=== PATIENT | female | born 1995 | race African-American/Black ===

== ENCOUNTER 2019-12-13 09:25 | Inpatient (IN) | payer OTHER ==
[2019-12-13] MEDS ORDERED: ELECTROLYTE-148 SOLN 500 ML IV ONE (13:39)
[2019-12-13] MEDS ORDERED: CITRIC ACID/SODIUM CITRATE 30 ML UNIT-DOSE CUP PO ONE (13:39)
--- NOTE | 2019-12-13 13:44 | HP ---
Past Medical History - Primary Care Physician PCP:: Derrick Peacock - Admission Chief Complaint: repeat lt c s History Source: Patient Limitations to Obtaining History: No Limitations - Past Medical History VP SECURITY: No: Alzheimer's, CVA, Dementia, Migraine, Multiple Sclerosis, Peripheral Neuropathy, Parkinson's, Seizure, Syncope, TIA, Vertigo, Other Cardiovascular: No: AFIB, Aneurysm, Aortic Insufficiency, Aortic Stenosis, CAD, CHF, Deep Vein Thrombosis, HTN, Hyperlipdemia, AR, Mitral Insufficiency, Mitral Stenosis, Murmur, Pulmonary Hypertension, Other Pulmonary: No: Asthma, Bronchitis, Cancer, COPD, O2 Dependent, Pneumonia, Previously Intubated, Pulmonary Embolus, Pulmonary Fibrosis, Sleep Apnea, Other Gastrointestinal: No: Ascites, Cancer, Constipation, Crohn's Disease, Diverticulitis, Diverticulosis, Esophageal Varices, Gastritis, GERD, GI Bleed, Hemorrhoids, Hiatal Hernia, Inflamatory Bowel Disease, Irritable Bowel Disease, Pancreatitis, Peptic Ulcer Disease, Ulcerative Colitis, Other Hepatobiliary: No: Cirrhosis, Cholelithiasis, Cholecystitis, Choledocholithiasis, Hepatitis A, Hepatitis B, Hepatitis C, Other Renal/: No: Renal Failure, Renal Inusuff, BPH, Cancer, Hematuria, Hemodialysis, Neurogenic Bladder, Renal Calculi, UTI, Other Reproductive: No: Ectopic , Endometriosis, Fibroids, PID, Polycystic Ovary Syndrome, Postmenopausal, Other Heme/Onc: No: Anemia, B12 Deficiency, Bleeding Disorder, Cancer, Current Chemotherapy, Current Radiation Therapy, Hemochromatosis, Hypercoaguable State, Myeloproliferative Synd, Sickle Cell Disease, Sickle Cell Trait, Thrombocytopenia, Other Infectious Disease: No: AIDS, C-Diff, Herpes Zoster, HIV, MRSA, STD's, Tuberculosis, VREF, Other Psych: No: Addictions, Anxiety, Bipolar, Depression, Panic, Psychosis, Schizophrenia, Other Musculoskeletal: No: Bursitis, Chronic low back pain, Hemiparesis, Hemiplegia, Osteoarthritis, Paraplegia, Other Rheumatology: No: Fibromyalgia, Gout, Lupus, Rheumatoid Arthritis, Sarcoidosis, Vasculitis, Other ENT: No: Allergic Rhinitis, Sinusitis, Other Endocrine: No: Alcona's Disease, Juana's Disease, Diabetes Insipidus, Diabetes Mellitus, Hyperparathyroidism, Hyperthyroidism, Hypothyroidism, Osteopenia, SIADH, Other Dermatology: No: Basal Cell, Cellulitis, Eczema, Melanoma, Psoriasis, Squamous Cell, Other - Past Surgical History Past Surgical History: Yes: Hx Myomectomy: No Hx Transabdominal Cerclage: No - Advance Directives Advance Directives: Yes: Living Will - Smoking History Smoking history: Never smoked Have you smoked in the past 12 months: No - Alcohol/Substance Use Hx Alcohol Use: No History of Substance Use: reports: None - Social History Usual Living Arrangement: Yes: With Significant Other Do you think of yourself as: Straight/Heterosexual ADL: Independent History of Recent Travel: No Family Medical History Family History: Denies Review of Systems - Review of Systems Constitutional: reports: No Symptoms Eyes: reports: No Symptoms HENT: reports: No Symptoms Neck: reports: No Symptoms Cardiovascular: reports: No Symptoms Respiratory: reports: No Symptoms Gastrointestinal: reports: No Symptoms Genitourinary: reports: No Symptoms Breasts: reports: No Symptoms Reported Musculoskeletal: reports: No Symptoms Integumentary: reports: No Symptoms Neurological: reports: No Symptoms Endocrine: reports: No Symptoms Hematology/Lymphatic: reports: No Symptoms Psychiatric: reports: No Symptoms Physical Exam - Maternity Vital Signs: Vital Signs Temperature 98.0 F 12/13/19 13:15 Pulse Rate 82 12/13/19 13:15 Respiratory Rate 18 12/13/19 13:15 Blood Pressure 98/67 12/13/19 13:15 O2 Sat by Pulse Oximetry (%) Constitutional: Yes: Well Nourished, No Distress, Calm Eyes: Yes: WNL, Conjunctiva Clear, EOM Intact HENT: Yes: WNL, Atraumatic, Normocephalic Neck: Yes: WNL, Supple, Trachea Midline Cardiovascular: Yes: WNL, Regular Rate and Rhythm Lungs: Clear to auscultation Breast(s): Yes: WNL - Abdominal Exam/OB Fundal Height: 38 Number of Fetuses: Single Presentation: Vertex Contractions: Yes Regularity: Irregular Intensity: Mild Monitor Mode: External Heart Rate Location: [facility] Category: I Accelerations: Uniform Decelerations: None - Vaginal Exam/OB Vaginal Bleeding: No Speculum Exam: No Dilatation (cm): 1 Effacement (%): 30 Amniotic Membrane Status: Intact Presentation: Vertex/Position Station: -2 - Physical Exam Musculoskeletal: Yes: WNL Extremities: Yes: WNL Edema: Yes Integumentary: Yes: WNL Deep Tendon Reflex Grade: Normal +2 ...Motor Strength: WNL Psychiatric: Yes: WNL, Alert, Oriented Hemorrhage Risk Assessment - Risk Factors Medium Risk Factors: Yes: Prior , uterine surgery,or multiple laparotomies High Risk Factors: Yes: None Risk Score: 1 Risk Level: Medium Risk Assessment/Plan for repeat lt c s x3
[2019-12-13] MEDS ORDERED: ELECTROLYTE-148 SOLN 1,000 ML IV SCH (13:45)
[2019-12-13 13:52] VITALS: BMI 29.2
[2019-12-13] MEDS ORDERED: morphine SULFATE/PF 0.5 MG/ML (2cc Syringe - QUVA) ONE (14:53)
[2019-12-13] MEDS ORDERED: ceFAZolin SODIUM 1 GM VIAL ONE ×2 (15:23→15:24)
[2019-12-13] MEDS ORDERED: KETOROLAC TROMETHAMINE 30 MG/1 ML VIAL ONE (15:24)
[2019-12-13] MEDS ORDERED: OXYTOCIN 20 UNITS in 0.9% NS 20 UNIT/1,000 ML INFUS.BAG IV ONE ×2 (15:25→16:07)
[2019-12-13] MEDS ORDERED: ePHEDrine SULFATE 50 MG/1 ML AMPULE ONE (15:31)
--- NOTE | 2019-12-13 16:44 | OP ---
Operative Note - Note: Operative Date: 12/13/19 Pre-Operative Diagnosis: repeat lt c s x 3 Operation: repeat lt c s x3 Post-Operative Diagnosis: Same as Pre-op Surgeon: Derrick Peacock Manager Medical Affairs: Dieudonne Spann Anesthesia: Spinal Estimated Blood Loss (mls): 500 (no complications ) Operative Report Dictated: Yes
[2019-12-13] MEDS ORDERED: METHYLERGONOVINE MALEATE 0.2 MG/1 ML AMP IM PRN (16:46)
[2019-12-13] MEDS ORDERED: SENNOSIDES/DOCUSATE COMBO (SENNA PLUS) TABLET (UD) PO PRN (16:46)
[2019-12-13] MEDS ORDERED: IBUPROFEN 800 MG/8 ML IJ IVPB PRN (16:46)
[2019-12-13] MEDS ORDERED: oxyCODONE HCL 5 MG TABLET PO PRN ×2 (16:46)
[2019-12-13] MEDS ORDERED: OXYTOCIN 20 UNITS in 0.9% NS 20 UNIT/1,000 ML INFUS.BAG IV SCH (17:00)
--- NOTE | 2019-12-13 19:31 | OP ---
DATE OF OPERATION: 12/13/2019 PREOPERATIVE DIAGNOSIS: Repeat low transverse section x3. POSTOPERATIVE DIAGNOSIS: Repeat low transverse section x3. PROCEDURE: Repeat low transverse section. SURGEON: Derrick Maurice MD. HEAD TRIMMER: DIANA Reddy. ANESTHESIA: Spinal ANESTHESIOLOGIST: Nany Trimble MD; BLOOD LOSS: About 500 mL INDICATION: A 24-year-old female patient, previous low transverse section x2, this is number 3, once 39 weeks was taken to the OR for repeat low transverse section. DESCRIPTION OF PROCEDURE: Patient was taken to OR, placed on operating table in supine position after spinal anesthesia was obtained. The patient's abdomen and pelvis were prepped and draped in the usual sterile manner. Pfannenstiel incision was made. The incision was made through skin, subcutaneous tissue, until the fascia was nicked in the midline. The fascia was extended bilaterally. Intraperitoneal cavity was entered, bladder flap was not created. Low transverse section of uterus was entered, baby delivered from LOT position. Baby was handed over to the long term care phlebotomist after umbilical cord was doubly clamped and cut. No cord blood gas was obtained. Placenta was removed. Uterus was closed in single layer, first layer interlocking Vicryl suture, good hemostasis, and both gutters clean. Both ovaries, fallopian tubes, uterus were within normal limits, and a polycystic ovarian cysts of the ovary were seen, and other than that, both gutters were clean, draining clear urine. Blood loss about 500 mL. Peritoneum was closed. Fascia was closed. Skin was closed. Transferred to recovery room in stable condition. DERRICK MAURICE MD [id number]
[2019-12-13] MEDS ORDERED: ONDANSETRON 4 MG/2 ML VIAL IVPB PRN (21:47)
[2019-12-14] MEDS: PRENATAL VITAMINS W/ FOLIC ACID TABLET (FP) PO SCH (09:28)
[2019-12-14 10:05] LABS: BASO % 0.4 % (0-2.0); EOS % 0.5 % (0-4.5); HEMATOCRIT 37.8 % (32.4-45.2); HEMOGLOBIN 12.3 GM/dL (10.7-15.3); LYMPH % 10.7 % (8-40); MCH 29.1 pg (25.7-33.7); MCHC 32.4 g/dl (32.0-36.0); MEAN CELL VOLUME 89.6 fl (80-96); MEAN PLT VOLUME 10.2 fl (7.5-11.1); MONO % 7.3 % (3.8-10.2); NEUT % 81.1 % (42.8-82.8); PLATELET COUNT 167 K/MM3 (134-434); RBC 4.21 M/mm3 (3.60-5.2); RDW 15.1 % (11.6-15.6)
--- NOTE | 2019-12-14 12:07 | PN ---
Post Progress Note - Subjective Subjective: Patient seen and evaluated, doing well. Post Day: 1 Type of Delivery: Repeat C/S Vital Signs: Vital Signs Temperature 98.2 F 12/14/19 05:59 Pulse Rate 86 12/14/19 05:59 Respiratory Rate 20 12/14/19 06:00 Blood Pressure 95/61 12/14/19 05:59 O2 Sat by Pulse Oximetry (%) 100 12/13/19 17:10 Breast Exam: Yes: Soft Uterus: Yes: Fundus Firm Incision: Yes: Dressing dry and intact Abdomen/GI: Yes: Abdomen soft, Tolerating PO Lochia: Yes: Rubra Lochia, amount: Small Extremities: Yes: Calves non-tender (Lying in bed) - Labs Labs: CBC WBC 9.0 K/mm3 (4.0-10.0) 12/14/19 09:17 RBC 4.21 M/mm3 (3.60-5.2) 12/14/19 09:17 Hgb 12.3 GM/dL (10.7-15.3) 12/14/19 09:17 Hct 37.8 % (32.4-45.2) 12/14/19 09:17 MCV 89.6 fl (80-96) 12/14/19 09:17 MCH 29.1 pg (25.7-33.7) 12/14/19 09:17 MCHC 32.4 g/dl (32.0-36.0) 12/14/19 09:17 RDW 15.1 % (11.6-15.6) 12/14/19 09:17 Plt Count 167 K/MM3 (134-434) 12/14/19 09:17 MPV 10.2 fl (7.5-11.1) 12/14/19 09:17 Absolute Neuts (auto) 7.3 K/mm3 (1.5-8.0) 12/14/19 09:17 Neutrophils % 81.1 % (42.8-82.8) D 12/14/19 09:17 Lymphocytes % 10.7 % (8-40) D 12/14/19 09:17 Monocytes % 7.3 % (3.8-10.2) 12/14/19 09:17 Eosinophils % 0.5 % (0-4.5) 12/14/19 09:17 Basophils % 0.4 % (0-2.0) 12/14/19 09:17 Nucleated RBC % 0 % (0-0) 12/14/19 09:17 Problem List - Problems (1) Status post repeat low transverse section Code(s): Z98.891 - HISTORY OF UTERINE SCAR FROM PREVIOUS SURGERY Assessment/Plan Status post repeat Low Transverse Ambulation Analgesia as needed Continue routine care
[2019-12-14] MEDS: IBUPROFEN 600 MG TABLET (FP) PO PRN ×2 (14:41→23:40)
[2019-12-14] MEDS: SIMETHICONE 80 MG TAB.CHEW (FP) PO PRN ×2 (14:41→23:39)
[2019-12-14] MEDS: ACETAMINOPHEN 325 MG TABLET (FP) PO PRN ×2 (14:42→23:40)
--- NOTE | 2019-12-14 15:37 | PN ---
Post Progress Note Post Day: 1 Type of Delivery: Repeat C/S Vital Signs: Vital Signs Temperature 98.5 F 12/14/19 14:00 Pulse Rate 97 H 12/14/19 14:00 Respiratory Rate 20 12/14/19 15:00 Blood Pressure 105/65 12/14/19 14:00 O2 Sat by Pulse Oximetry (%) 98 12/14/19 14:00 Breast Exam: Yes: Soft Uterus: Yes: Fundus Firm Incision: Yes: Dressing dry and intact, Sutures intact Abdomen/GI: Yes: Abdomen soft, Passing flatus, Tolerating PO Lochia: Yes: Serosa Lochia, amount: Small Extremities: Yes: Calves non-tender Perineum: Yes: Intact Activity: Ambulating - Labs Labs: CBC WBC 9.0 K/mm3 (4.0-10.0) 12/14/19 09:17 RBC 4.21 M/mm3 (3.60-5.2) 12/14/19 09:17 Hgb 12.3 GM/dL (10.7-15.3) 12/14/19 09:17 Hct 37.8 % (32.4-45.2) 12/14/19 09:17 MCV 89.6 fl (80-96) 12/14/19 09:17 MCH 29.1 pg (25.7-33.7) 12/14/19 09:17 MCHC 32.4 g/dl (32.0-36.0) 12/14/19 09:17 RDW 15.1 % (11.6-15.6) 12/14/19 09:17 Plt Count 167 K/MM3 (134-434) 12/14/19 09:17 MPV 10.2 fl (7.5-11.1) 12/14/19 09:17 Absolute Neuts (auto) 7.3 K/mm3 (1.5-8.0) 12/14/19 09:17 Neutrophils % 81.1 % (42.8-82.8) D 12/14/19 09:17 Lymphocytes % 10.7 % (8-40) D 12/14/19 09:17 Monocytes % 7.3 % (3.8-10.2) 12/14/19 09:17 Eosinophils % 0.5 % (0-4.5) 12/14/19 09:17 Basophils % 0.4 % (0-2.0) 12/14/19 09:17 Nucleated RBC % 0 % (0-0) 12/14/19 09:17 Assessment/Plan dc pt home tomorrow
--- NOTE | 2019-12-14 15:39 | DS ---
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 Vital Signs: Vital Signs Temperature 98.5 F 12/14/19 14:00 Pulse Rate 97 H 12/14/19 14:00 Respiratory Rate 12/14/19 15:00 Blood Pressure 105/65 12/14/19 14:00 O2 Sat by Pulse Oximetry (%) 98 12/14/19 14:00 Constitutional: Yes: Well Nourished, No Distress, Calm Eyes: Yes: WNL, Conjunctiva Clear, EOM Intact HENT: Yes: WNL, Atraumatic, Normocephalic Neck: Yes: WNL, Supple, Trachea Midline Cardiovascular: Yes: WNL, Regular Rate and Rhythm Respiratory: Yes: WNL, Regular, CTA Bilaterally Gastrointestinal: Yes: WNL, Normal Bowel Sounds, Soft ...Rectal Exam: Yes: WNL Renal/: Yes: WNL Pelvis: Yes: WNL External Genitalia: Yes: Normal Internal Exam Deferred: Yes Vaginal Exam: Yes: Normal Cervix: Yes: Normal Uterus: Yes: Normal Adnexa: Normal: Bilateral ....Post : Yes: Uterus firm, Uterus non-tender Breast(s): Yes: WNL Musculoskeletal: Yes: WNL Extremities: Yes: WNL Edema: Yes Integumentary: Yes: WNL Wound/Incision: Yes: Clean/Dry, Well Approximated Neurological: Yes: WNL, Alert, Oriented ...Motor Strength: WNL Psychiatric: Yes: WNL, Alert, Oriented Labs: CBC, BMP 12/14/19 09:17 Delivery - Delivery Section: Repeat Type of Anesthesia: Spinal Episiotomy/Laceration: None EBL (cc): 500 Delivery, Single - Stages of Labor Date of Delivery: 12/13/19 Time of Delivery: 15:38 Time Placenta Delivered: 15:39 - Condition of Infant Panel Sewer/Attendant Coin Operated Laundry Present: Yes Name: Lupe Lynn Infant Gender: Male Weight: 3.374 kg Position: Left, OA Total Hours ROM (Hrs/Mins): 3mins - 1 Minute Total Score: 9 5 Minutes Total Score: 9 - [place] Feeding Plan Initial Plan: Elected not to breastfeed exclusively throughout hospitalization Discharge Summary Problems reviewed: Yes Reason For Visit: CSECTION Current Active Problems Status post repeat low transverse section (Acute) Procedures: Principal: repeat c s x 3 Hospital Course: uneventful Health Concerns: none Condition: Good - Instructions Diet, Activity, Other Instructions: Physical activity Resume your normal everyday activity as tolerated no heavy lifting or exercise until seen by your surgeon. You may walk unlimited kota of and climb stairs. You may resume driving the car when you feel safe and comfortable behind the wheel. No sexual activity as instructed. Wound care If you have a bandage, leave it on, and keep dry for 48-72 hours. After that time discard the outer bandage. If they are tapes on the skin under the out of bandage leave them in place. They will peel off in the next 7 to 10 days. Do Not Peel them off. You may shower the day after surgery. If there are tapes present on the skin, you may shower over them. Diet There are no dietary restrictions. Eat healthy, high-fiber foods. Drink 6 to 8 glasses of liquid each day. This will assist in keeping your bowels are regular. Pain management You may take Tylenol or acetaminophen or Ibuprofen (for example, Motrin, Advil etc.) from my pain prescription medication is ordered should be taken as prescribed for moderate to severe pain. Call MD for any of the following: call dr johnson for 2 weeks appointment Severe pain not relieved by medication Fever of 101 or higher Excessive bleeding or drainage on dressing Inability to urinate Disposition: HOME - Home Medications Comprehensive Discharge Medication List: Ambulatory Orders Pnv No.95/Ferrous Fum/Folic AC [ Formula] 1 each PO DAILY 12/13/19 Prescription Drug Monitoring Program (I-STOP) results: I-STOP reviewed and no issues identified
[2019-12-14] MEDS ORDERED: BISACODYL 10 MG SUPP.RECT RC PRN (16:46)
--- NOTE | 2019-12-14 18:52 | PN ---
Progress Note (short form) - Note Progress Note: 24F s/p repeat C/S under spinal with Duramorph. No new c/o. Vital Signs Temp 98.5 F 12/14/19 14:00 Pulse 97 H 12/14/19 14:00 Resp 20 12/14/19 15:00 BP 105/65 12/14/19 14:00 Pulse Ox 98 12/14/19 14:00 Intake & Output 12/13/19 12/14/19 12/14/19 23:59 11:59 23:59 Intake Total 1300 800 Output Total 100 2500 900 Balance 1200 -1700 -900 Weight 160 lb Intake: IV 1300 800 NORMAL SALINE+20 UNITS 500 800 OXYTOCIN - 20 unit In 1, 000 ml @ 125 mls/hr IV ASDIR ELIZABETH Rx#:[id number] Plasma-Lyte 148 - 500 ml 800 @ 1000 mls/hr IV ASDIR ONE Rx#:[id number] Output: Urine 100 2500 900 Baum 100 2500 Void 900 Other: Voiding Method Indwelling Catheter Toilet Bowel Movement No Height 5 ft 2 in Body Mass Index (BMI) 29.2 Weight 7 lb 7 oz 7 lb 7 oz Length 18 in Weight Measurement Method Stated by Patient - No anesthesia complications - D/C pending
[2019-12-15] MEDS: PRENATAL VITAMINS W/ FOLIC ACID TABLET (FP) PO SCH (09:43)
[2019-12-15] MEDS: SIMETHICONE 80 MG TAB.CHEW (FP) PO PRN (13:03)
[2019-12-15] MEDS: IBUPROFEN 600 MG TABLET (FP) PO PRN (13:03)
[2019-12-15] MEDS: ACETAMINOPHEN 325 MG TABLET (FP) PO PRN (13:03)
[2019-12-15 14:35] VITALS: BP 118/73; PULSE 83; TEMP 98.3
--- NOTE | 2019-12-23 11:58 | PATH ---
Surgical Pathology Report Patient Name: MARKO SAUCEDA Med. Rec. 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 TRIVASCULAR CORD. MEMBRANES WITH NO DIAGNOSTIC ABNORMALITIES. Electronically Signed Irene Carranza M.D. Gross Description The specimen is received fresh labeled placenta and is a 496 gram, 19.0 x 17.0 x 2.6 cm. placenta with attached membranes and umbilical cord. The attached membranes are hall, translucent with focal opacities and insert marginally. The umbilical cord measures 37 cm. in length and averages 1 cm. in diameter. The cord inserts eccentrically, 2 cm. to the nearest margin. No true knots or strictures are identified. Cut surface of the umbilical cord reveals 3 vessels. The surface is garcia-blue with minimal fibrin deposition and appropriate caliber vessels. The maternal surface is red-brown with focal defects. Sectioning reveals red-brown, spongy parenchyma. No lesions are identified. Machine Operator Packaging sections are submitted in three cassettes as follows: 1- membrane rolls and umbilical cord; 2-3- full thickness sections of placenta. /12/19/2019 [facility]12/19/2019
== END 2019-12-15 13:50 | disposition home or self-care (01) | DRG 540 ==
LOC: JLDR 09:25 → J3W 18:00
PROVIDERS: ADMIT Obstetrics & Gynecology; ATTEND Obstetrics & Gynecology
PROC: 10D00Z1 Extraction of Products of Conception, Low, Open Approach (ICD-10-PCS; principal; 2019-12-13)
DX: O82 Encounter for cesarean delivery without indication (principal); O34.211 Maternal care for low transverse scar from previous cesarean delivery; Z3A.39 39 weeks gestation of pregnancy; Z37.0 Single live birth
CPT/HCPCS: 36415; 85025; 88307-TC

== ENCOUNTER 2024-03-29 11:11 | Inpatient (IN) | payer OTHER ==
[2024-03-29] MEDS: ELECTROLYTE-148 SOLN 500 ML IV ONE (11:50)
[2024-03-29 12:26] VITALS: BMI 31.4
[2024-03-29] MEDS: ELECTROLYTE-148 SOLN 1,000 ML IV SCH (12:50)
[2024-03-29] MEDS: CITRIC ACID/SODIUM CITRATE 30 ML UNIT-DOSE CUP PO ONE (13:05)
[2024-03-29] MEDS ORDERED: IBUPROFEN 600 MG TABLET (FP) PO PRN (13:17)
[2024-03-29] MEDS ORDERED: ACETAMINOPHEN 325 MG TABLET (FP) PO PRN ×2 (13:17→15:35)
[2024-03-29] MEDS ORDERED: ceFAZolin SODIUM 1 GM VIAL ONE (13:21)
[2024-03-29] MEDS ORDERED: morphine SULFATE/PF 1 MG/2 ML (2cc Syringe - QUVA) ONE (13:21)
[2024-03-29] MEDS ORDERED: FENTANYL CITRATE/PF 50 MCG/ML VIAL ONE (13:21)
[2024-03-29] MEDS ORDERED: PHENYLEPHRINE HCL 10 MG/1 ML SINGLE DOSE VIAL ONE (14:00)
[2024-03-29] MEDS ORDERED: OXYTOCIN 10 UNITS/ML VIAL ONE ×2 (14:08→14:40)
[2024-03-29] MEDS ORDERED: ONDANSETRON 4 MG/2 ML VIAL ONE (17:04)
[2024-03-29] MEDS: ONDANSETRON 4 MG/2 ML VIAL IVPUSH PRN (17:15)
[2024-03-29] MEDS ORDERED: NIFEdipine E.R. 30 MG TABLET PO ONE (17:32)
[2024-03-29] MEDS: NIFEdipine E.R. 30 MG TABLET PO SCH (17:33)
[2024-03-29] MEDS ORDERED: OXYTOCIN 20 UNITS in 0.9% NS 20 UNIT/1,000 ML INFUS.BAG IV ONE (17:56)
[2024-03-29] MEDS: OXYTOCIN 20 UNITS in 0.9% NS 20 UNIT/1,000 ML INFUS.BAG IV SCH (17:59)
[2024-03-29] MEDS ORDERED: ACETAMINOPHEN INJECTION 100 ML ONE (18:48)
[2024-03-29] MEDS ORDERED: MISOPROSTOL 200 MCG TABLET ONE (18:51)
[2024-03-29] MEDS: ACETAMINOPHEN 1000 MG/100 ML BAG IVPB PRN (18:53)
[2024-03-29] MEDS: MISOPROSTOL 200 MCG TABLET PR ONE (18:55)
[2024-03-29] MEDS: METHYLERGONOVINE MALEATE 0.2 MG/1 ML AMP IM PRN (20:40)
[2024-03-29] MEDS: FERROUS SO4 325 MG TABLET (FP) PO SCH (21:58)
[2024-03-29] MEDS: CEFAZOLIN SODIUM 2 GM in DEXTROSE 5%-WATER 100 ML IVPB SCH ×2 (21:59→22:02)
[2024-03-29] MEDS: LABETALOL HCL 200 MG TABLET (FP) PO SCH (21:59)
[2024-03-29] MEDS: METHYLERGONOVINE MALEATE 0.2 MG/1 ML AMP IM SCH (23:55)
[2024-03-30] MEDS ORDERED: oxyCODONE HCL 5 MG TABLET PO PRN (03:35)
[2024-03-30] MEDS: IBUPROFEN 800 MG/8 ML IJ IVPB PRN (04:00)
[2024-03-30 09:15] LABS: BASO % 0.4 % (0-2.0); HEMATOCRIT 26.4 % (32.4-45.2); HEMOGLOBIN 8.6 GM/dL (10.7-15.3); LYMPH % 18.9 % (8-40); MCH 28.9 pg (25.7-33.7); MCHC 32.8 g/dl (32.0-36.0); MEAN CELL VOLUME 88.2 fl (80-96); MEAN PLT VOLUME 11.2 fl (7.5-11.1); MONO % 8.5 % (3.8-10.2); NEUT % 72.2 % (42.8-82.8); PLATELET COUNT 129 10^3/uL (134-434); RBC 2.99 M/mm3 (3.60-5.2); RDW 15.9 % (11.6-15.6); WHITE BLOOD COUNT 13.1 K/mm3 (4.0-10.0)
[2024-03-30] MEDS: PRENATAL VITAMINS W/ FOLIC ACID TABLET (FP) PO SCH (10:11)
[2024-03-30] MEDS: SIMETHICONE 80 MG TAB.CHEW (FP) PO PRN (16:46)
[2024-03-30] MEDS: oxyCODONE HCL 5 MG TABLET PO PRN (16:46)
[2024-03-30] MEDS: IBUPROFEN 600 MG TABLET (FP) PO PRN (19:18)
[2024-03-30] MEDS: LABETALOL HCL 100 MG TABLET (FP) PO SCH (22:30)
[2024-03-31] MEDS: SENNOSIDES/DOCUSATE COMBO (SENNA PLUS) TABLET (UD) PO PRN (03:27)
[2024-03-31] MEDS: BISACODYL 10 MG SUPP.RECT RC PRN (18:22)
[2024-04-01 11:04] VITALS: BP 142/86; PULSE 93; RESP 17; TEMP 98.5
== END 2024-04-01 14:15 | disposition home or self-care (01) | DRG 540 ==
LOC: JLDR 11:11 → J3W 21:42
PROVIDERS: ADMIT Obstetrics & Gynecology; ATTEND Obstetrics & Gynecology
PROC: 10D00Z1 Extraction of Products of Conception, Low, Open Approach (ICD-10-PCS; principal; 2024-03-29)
DX: O24.429 Gestational diabetes mellitus in childbirth, unspecified control (principal); O36.5930 Maternal care for other known or suspected poor fetal growth, third trimester, not applicable or unspecified; O34.219 Maternal care for unspecified type scar from previous cesarean delivery; O62.1 Secondary uterine inertia; Z3A.38 38 weeks gestation of pregnancy; Z37.0 Single live birth
CPT/HCPCS: 36415; 59409; 80053; 85025; 85610; 85730; 86803; 86850; 86900; 86901; 86922; 87389; 88307-TC; J0131